=== PATIENT | male | born 1950 | race Caucasian/White ===

== ENCOUNTER 2019-07-01 11:23 | Emergency (ER) | payer MEDICARE ==
--- NOTE | 2019-07-01 12:59 | CT ---
CT OF THE THORAX WITHOUT IV CONTRAST INDICATION: Fall with left-sided rib pain COMPARISON: No relevant prior studies are available. FINDINGS: LUNGS: There is subsegmental volume loss within the lingula and left lower lobe. There is scattered p araseptal emphysema. Pleural spaces: There is a small left pleural effusion Lymph nodes: No definite enlarged mediastinal lymph nodes are enlarged. The lack of IV contrast limit s evaluation of the hilar regions for lymphadenopathy. There are a few mildly prominent lymph nodes within the right axillary region which is nonspecific. The largest measures 2 cm on image 14 of serie s 2. Heart and great vessels: There are coronary artery and thoracic aortic calcifications. Upper abdomen: There are multiple gallstones within the gallbladder. Adrenal glands are normal appear ing. There are scattered colonic diverticulosis. Osseous structures: There are healed rib deformities involving the anterolateral right second and thi rd rib. There is suspected exuberant heterotopic ossification seen at the anterior and superior to the right second rib healed fracture. No acute displaced left-sided rib fracture is demonstrated. The re is scattered degenerative and osteoarthritic change present. IMPRESSION: 1. No acute displaced left-sided rib fracture. 2. Small left pleural effusion with left basilar atelectasis. 3. Nonspecific mildly prominent right axillary lymph nodes. 4. Mild emphysema 5. Cholelithiasis 6. Colonic diverticulosis
== END 2019-07-01 13:31 | disposition home or self-care (01) ==
LOC: MADERS 11:23
DX: S20.212A Contusion of left front wall of thorax, initial encounter (principal); J90 Pleural effusion, not elsewhere classified; I10 Essential (primary) hypertension; J45.909 Unspecified asthma, uncomplicated; Z79.899 Other long term (current) drug therapy; Z79.51 Long term (current) use of inhaled steroids; W18.30XA Fall on same level, unspecified, initial encounter
CPT/HCPCS: 71250